=== PATIENT | male | born 1940 | race Caucasian/White ===

== ENCOUNTER 2017-04-06 11:15 | Outpatient (CLI) | payer MEDICARE, OTHER ==
[~2017-04-06] VITALS: Ht 177.8 cm; Wt 93.2 kg
--- NOTE | ~2017-04-06 | HEMODYNAMI ---
PATIENT:FLAVIA BERRIOS MEDICAL RECORD: [id number] : 44 LOCATION:[facility]ERS ADMISSION DATE: 04/06/17 Generatedon:04/06/201715:07 Patient name: FLAVIA BERRIOS Patient #: [id number] SSN: [id number] : 1940 Date of study: 04/06/2017 Page: Of Hemodynamic Procedure Report Patient Data Patient Demographics Procedure consent was obtained First Name: FLAVIA Gender: Male Last Name: YASH : 1940 Patient #: [id number] Age: 76 year(s) Race: Unknown SSN: [id number] Ethnicity: or Additional ID: [id number] Contact details Address: [address] State: [place] [facility] Zip code: [address] Admission Admission Data Admission Date: 04/06/2017 Admission Time: 11:15 Arrival Date: 04/06/2017 Arrival Time: 13:30 Admit Source: Other Insurance Payor: Medicare Height (in.): 70 BSA: 2.11 (m2) Height (cm.): 177.8 BMI: 29.41 (kg/m2) Weight (lbs.): 205 Weight (kg.): 92.99 Lab Results Lab Result Date: 04/06/2017 Lab Result Time: 0:00 Biochemistry Name Units Result Min Max BUN mg/dl 12 --(-*--)-- 7 18 Creatinine mg/dl 1 --(--*-)-- 0.6 1.3 CBC Name Units Result Min Max Hemoglobin g/dl 15.8 --(--*-)-- 13.5 17.5 Procedure Procedure Types Cath Procedure Diagnostic Procedure [facility] w/Coronaries Miscellaneous Procedures Moderate Sedation up to 30 minutes Procedure Description Procedure Date Procedure Date: 04/06/2017 Procedure Start Time: 14:43 Procedure End Time: 15:02 Procedure Staff Name Function Cade Childers MD Performing Physician Perla Leija RT Scrub Catherine Winter RN Nurse Chichi Marley RT Monitor Procedure Data Cath Procedure Fluoroscopy Diagnostic fluoroscopy Total fluoroscopy Time: 2 time: 2 min min Diagnostic fluoroscopy Total fluoroscopy dose: 178 dose: 178 mGy mGy Contrast Material Contrast Material Type Amount (ml) Isovue 300 48 Entry Location Entry Primary Successful Side Size Upsize Upsize Entry Closure Brush ccessful Closure Location (Fr) 1 (Fr) 2 (Fr) Remarks Device Remarks Radial Right 6 Fr Mechanical artery Short Compression Femoral Right 5 Fr Exoseal artery Estimated blood loss: 5 ml Diagnostic catheters Device Type Used For End Catheter Placement Diagnostic Terumo Multi-vessel Optitorque 5Fr [place] 4.5 Angiography catheter Procedure Complications No complications Procedure Medications Medication Administration Route Dosage 0.9% NaCl I.V. 100 ml/hr Oxygen NC 2 l/min Heparin Flush Bag added to field 2 bags (1000units/500ml NS) Lidocaine 2% added to field 20 Radial Cocktail added to field 1 syringe (Verapomil 2mg/Nitro 400mcg/Heparin 1500units) Fentanyl I.V. 50 mcg Versed I.V. 1 mg Versed I.V. 1 mg Fentanyl I.V. 50 mcg Versed I.V. 1 mg Fentanyl I.V. 25 mcg Hemodynamics Rest BSA: 2.11 (m2) HGB: 15.8 (g/dl) O2 Consumption: Estimated: 243.88 (ml/min) O2 Co nsumption indexed: Estimated:115.58 (ml/min/m) Heart Rate: 71 (bpm) Pressure Samples Time Site Value (mmHg) Purpose Heart Use Rate(bpm) 14:57 LV 150/28,27 Snapshot 82 Gradients Valve Time Site Site Mean SEP/DFP Peak To Heart Use 1 2 (mmHg) (sec/min) Peak Rate (mmHg) (bpm) Aortic 14:58 LV AO 76 Snapshots Pre Cath Intra NCS Post Cath Vital Signs Time Heart Resp SPO2 NIBP (mmHg) Rhythm Pain Sedation Rate (ipm) (%) Status Level (bpm) 14:17:20 73 15 99 Measuring NSR 0 (11) 10(A) , No pain 14:18:07 75 17 98 189/111(146) NSR 0 (11) 10(A) , No pain 14:22:47 67 16 100 185/97(142) NSR 0 (11) 10(A) , No pain 14:27:18 67 15 99 168/96(134) NSR 0 (11) 10(A) , No pain 14:31:40 64 14 97 154/81(121) NSR 0 (11) 10(A) , No pain 14:36:39 61 17 98 Measuring NSR 0 (11) 9(A) , No pain 14:37:06 63 14 98 168/98(123) NSR 0 (11) 9(A) , No pain 14:41:24 62 16 97 148/86(123) NSR 0 (11) 9(A) , No pain 14:45:48 63 13 98 164/97(137) NSR 0 (11) 9(A) , No pain 14:50:10 75 13 96 122/77(101) NSR 0 (11) 9(A) , No pain 14:54:26 76 13 94 137/80(105) NSR 0 (11) 9(A) , No pain 14:59:25 70 14 87 Measuring NSR 0 (11) 9(A) , No pain 14:59:48 72 14 95 153/84(124) NSR 0 (11) 10(A) , No pain Medications Time Medication Route Dose Verified Delivered Reason Notes Eff ectiveness by by 14:15:46 0.9% NaCl I.V. 100 Buffie Buffie used for ml/hr Winter RN Winter rocket engine mechanic 14:15:57 Oxygen NC 2 l/min Buffie Buffie used for Winter RN Winter rocket engine mechanic 14:16:12 Heparin Flush added 2 bags Buffie Buffie used for Bag to Winter RN Winter rocket engine mechanic (1000units/500ml field NS) 14:16:21 Lidocaine 2% added 20ml Buffie Buffie used for to vial Winter RN Winter rocket engine mechanic field 14:28:44 Radial Cocktail added 1 Buffie Buffie used for (Verapomil to syringe Winter RN Winter rocket engine mechanic 2mg/Nitro field 400mcg/Heparin 1500units) 14:30:28 Fentanyl I.V. 50 mcg Buffie Buffie for Winter RN Winter RN sedation 14:30:38 Versed I.V. 1 mg Buffie Buffie for Winter RN Winter RN sedation 14:37:43 Versed I.V. 1 mg Buffie Buffie for Maggy Winter RN sedation 14:37:48 Fentanyl I.V. 50 mcg Catherine Alexander for Maggy Winter RN sedation 14:46:44 Versed I.V. 1 mg Catherine Alexander for Maggy Winter RN sedation 14:46:49 Fentanyl I.V. 25 mcg Catherine Alexander for Maggy Winter RN sedation Procedure Log Time Note 14:00:41 Catherine Winter RN sent for patient. Start room use. 14:14:01 Diagnostic Cath Status : Elective 14:14:49 Time tracking: Regular hours 14:14:53 Plan of Care:Hemodynamics will remain stable., Cardiac rhythm will remain stable., Comfort level will be maintained., Respiratory function will remain adequate., Patient/ family verbilizes understanding of procedure., Procedure tolerated without complication., Recovers from procedure without complications.. 14:15:09 Patient received from Pre/Post Procedure Room to CCL 3 Alert and oriented. Tansferred to table in Supine position. 14:15:12 Warm blankets applied, and mack hugger turned on for patient comfort. 14:15:12 Correct patient and procedure confirmed by team. 14:15:14 Signed procedure consent form obtained from patient. 14:15:15 ECG and BP/O2 sat monitors applied to patient. 14:15:31 Vital chart was started 14:15:46 0.9% NaCl 100 ml/hr I.V. was administered by Catherine Winter RN; used for procedure; 14:15:57 Oxygen 2 l/min NC was administered by Catherine Winter RN; used for procedure; 14:16:12 Heparin Flush Bag (1000units/500ml NS) 2 bags added to field was administered by Catherine Winter RN; used for procedure; 14:16:21 Lidocaine 2% 20ml vial added to field was administered by Catherine Winter RN; used for procedure; 14:21:55 Baseline sample Acquired. 14:21:58 Rhythm: sinus rhythm 14:22:00 Full Disclosure recording started 14:24:29 H&P Date Dictated: 03/24/2017 Within 30 days and on chart., H&P Addendum completed by physician on day of procedure. (MUST COMPLETE FOR ALL OUTPATIENTS). 14:24:30 Pre-procedure instructions explained to patient. 14:24:31 Pre-op teaching completed and patient verbalized understanding. 14:24:32 Family in waiting room. 14:24:33 Patient NPO since Midnight. 14:24:41 Is the patient allergic to Iodine/contrast media? No. 14:24:42 Was the patient premedicated? No 14:24:44 Is patient on blood thinner?No 14:24:47 Patient diabetic? No. 14:24:50 Previous problem with sedation/anesthesia? No ? 14:24:52 Snore? Yes 14:24:53 Sleep apnea? No 14:24:54 Deviated septum? No 14:24:54 Opens mouth fully? Yes 14:24:55 Sticks out tongue? Yes 14:24:57 Airway obstruction? No ? 14:24:59 Dentures? No ? 14:25:02 Pre procedure: right dorsailis pedis pulse 1+ Palpable, but thready & weak; easily obliterated 14:25:05 Patient pain scale 0/10 ?. 14:25:12 IV patent on arrival in left forearm with 0.9% NaCl at [facility]. 14:28:44 Radial Cocktail (Verapomil 2mg/Nitro 400mcg/Heparin 1500units) 1 syringe added to field was administered by Catherine Winter RN; used for procedure; 14:30:06 Lab Result : Creatinine 1 mg/dl 14:30:06 Lab Result : BUN 12 mg/dl 14:30:06 Lab Result : Hemoglobin 15.8 g/dl 14:30:28 Fentanyl 50 mcg I.V. was administered by Catherine Winter RN; for sedation; 14:30:31 Lab results completed and on chart. 14:30:35 Right Radial & Right Groin area was prepped with chlora-prep and draped in sterile fashion 14:30:36 Alarms reviewed by R. N. 14:30:36 Sharps counted by scrub and verified by R.N. 14:30:38 Versed 1 mg I.V. was administered by Catherine Winter RN; for sedation; 14:30:38 Physician arrived 14:30:38 --------ALL STOP TIME OUT------ 14:30:39 Final Timeout: patient, procedure, and site verified with staff and physician. All members of the team are in agreement. 14:30:41 Right Radial & Right Groin site verified by team. 14:30:43 Physical assessment completed. ASA score P 2 - A patient with mild systemic disease as per Cade Childers MD. 14:30:46 Sedation plan: IV Moderate Sedation Versed, Fentanyl 14:30:51 Use device set Radial Dx 14:30:52 Acist Syringe opened to sterile field. 14:30:52 Medline Cath Pack opened to sterile field. 14:30:53 Bag Decanter opened to sterile field. 14:30:53 Terumo 6Fr Slender Glidesheath opened to sterile field. 14:30:54 St Scott 260cm J .035 wire opened to sterile field. 14:30:54 Acist Hand Control opened to sterile field. 14:30:55 Acist Manifold opened to sterile field. 14:30:55 Tegaderm 4 x 4 opened to sterile field. 14:30:56 MBrace Wrist Support opened to sterile field. 14:35:49 Zero performed for pressure channel P1 14:37:43 Versed 1 mg I.V. was administered by Catherine Winter RN; for sedation; 14:37:48 Fentanyl 50 mcg I.V. was administered by Catherine Winter RN; for sedation; 14:37:58 Zero performed for pressure channel P1 14:43:20 Procedure started. 14:43:28 Local anesthetic to right radial artery with Lidocaine 2% by Cade Childers MD.INITIAL ACCESS ONLY 14:43:51 A 6 Fr Short sheath was inserted into the Right Radial artery 14:46:44 Versed 1 mg I.V. was administered by Catherine Winter RN; for sedation; 14:46:49 Fentanyl 25 mcg I.V. was administered by Catherine Winter RN; for sedation; 14:49:08 A Diagnostic Terumo Optitorque 5Fr [place] 4.5 catheter was advanced over the wire and used for Multi-vessel Angiography. 14:51:55 Radial loop detected; catheter removed; preparing for femoral access 14:52:08 Diagnostic Infinity 5Fr Multipack catheter opened to sterile field. 14:52:08 Terumo 5Fr [place] Sheath opened to sterile field. 14:52:32 Local anesthetic to right femoral artery with Lidocaine 2% by Cade Childers MD.ADDITIONAL ACCESS 14:52:53 A 5 Fr sheath was inserted into the Right Femoral artery 14:53:13 5 Fr jl 4 guide catheter was inserted over the wire 14:53:56 LCA angiography performed. 14:53:59 Injector settings: Ml/sec: 3, Volume: 6, 14:54:03 Catheter removed. 14:54:31 5 Fr 3drc guide catheter was inserted over the wire 14:55:34 RCA angiography performed. 14:55:37 Injector settings: Ml/sec: 3, Volume: 6, 14:56:24 Catheter removed. 14:57:04 5 Fr pig guide catheter was inserted over the wire 14:57:57 LV hemodynamics recorded. 14:57:58 LV gram done using GUTIÉRREZ 14:58:00 Injector settings: Ml/sec: 5, Volume: 15, 14:58:29 EF : 55 % 14:58:31 Catheter removed. 14:58:38 Cordis 5Fr Exoseal opened to sterile field. 14:59:19 Sheath removed intact; hemostasis achieved with Exoseal to the Right Femoral artery. 14:59:54 Procedure ended.(Physican Out) 15:00:03 Terumo TR Band Large opened to sterile field. 15:00:10 Fluoroscopy time 02.00 minutes. 15:00:17 Fluoroscopy dose: 178 mGy 15:00:17 Flurop Dose total: 178 15:00:36 Contrast amount:Isovue 300 48ml. 15:00:49 Sharps counted by scrub and verified by R.N. 15:00:51 TR band inflated with 10cc of air. 15:01:10 Sheath removed intact; hemostasis achieved with Mechanical Compression to the Right Radial artery. 15:01:15 Insertion/operative site no bleeding no hematoma. 15:01:18 Post-op/insertion site Right Femoral artery dressed using a 4 x 4 and Tegaderm. 15:01:22 Post right radial artery:stable 15:01:23 Post Procedure Pulses reassessed and unchanged 15:01:26 Post procedure rhythm: unchanged. 15:01:28 Estimated blood loss: 5 ml 15:01:30 Post procedure instruction explained to patient.Patient verbalizes understanding. 15:01:30 Patient needs reinforcement of post procedure teaching. 15:01:47 Procedure type changed to Cath procedure, Diagnostic procedure, LHC, LHC w/Coronaries, Miscellaneous Procedures, Moderate Sedation up to 30 minutes 15:01:49 Procedure and supply charges have been captured, reviewed, submitted and are correct. 15:01:53 Procedure Complication : No complications 15:01:56 Vital chart was stopped 15:01:56 See physician's report for complete and final results. 15:01:59 Report given to Pre/Post Procedure Room. 15:02:02 Patient transfered to Pre/Post Procedure Room with Stretcher. 15:02:04 Procedure ended. 15:02:04 Full Disclosure recording stopped 15:02:08 End room use (Document Last) 15:03:18 Admit Source: Other 15:03:20 Arrival Date: 04/06/2017 1:30:00 PM 15:03:29 Insurance Payor : Medicare 15:03:42 Patient Weight : 92.99 kg 15:03:46 Patient Height : 177.8 cm Device Usage Item Name Manufacture Quantity Catalog Hospital Part Current Minimal Lot# / Number Charge Number Stock Stock Serial# Code Acist Acist 1 06451 [id number] 042517 [id number] 20 Syringe [employer] Inc Medline Cardinal 1 [id number] 919504 77754 822983 5 Cath Pack Health Bag Microtek 1 2002S 512458 53718 862770 5 [employer] Terumo 6Fr Terumo 1 [id number] 429526 377381 130679 [address] [facility] Scott 1 [id number] 755346 656504 995493 30 260cm J .035 wire Acist Hand Acist 1 08551 668239 906528 499583 5 Control Medical [employer] Inc Acist Acist 1 91792 003447 064930 478900 5 Manifold Medical Systems Inc Tegaderm 4 3M 1 1626W 708706 429509 302466 5 x 4 MBrace Advanced 1 140-0250-00 835885 64453 264235 5 Wrist Vascular Support Dynamics Diagnostic Terumo 1 40-1368 857469 237790 282063 5 Terumo Optitorque 5Fr [place] 4.5 catheter Diagnostic Cardinal 1 [id number] 943631 45486 890607 30 Infinity Health 5Fr Multipack catheter Terumo 5Fr Terumo 1 [id number] 527279 017257 444049 40 [place] Sheath Cordis 5Fr Cardinal 1 EX500 689532 344175 899558 10 Exoseal Health Terumo TR Terumo 1 [id number] 709803 966350 446021 40 Band Large Signature Audit Miller Stage Time Signature Unsigned Intra-Procedure 04/06/2017 Chichi Marley 3:07:33 PM RT(R) Signatures Monitor : Chichi Marley RT Signature : Date : Time : [facility] [address] [place] [address]
[2017-04-06] MEDS ORDERED: PRAVACHOL40 MG PO (12:19)
[2017-04-06] MEDS ORDERED: LISINOPRIL5 MG PO (12:19)
[2017-04-06 12:21] VITALS: BP 170/95; Ht 177.8 cm; Wt 93.2 kg
[2017-04-06 12:43] LABS: BASOPHILS 0.5 % (0-2); EOSINOPHILS 1.9 % (0-7); HEMATOCRIT 45.9 % (42.0-54.0); HEMOGLOBIN 15.8 g/dL (13.5-17.5); IMMATURE GRANULOCYTES 0.2 % (0-5); LYMPHOCYTES 28.5 % (15-50); MCH 31.2 pg (26.0-34.0); MCHC 34.4 g/dL (31.0-37.0); MCV 90.5 fL (80.0-100.0); NEUTROPHILS 57.9 % (40-80); PLATELET COUNT 221 10x3/uL (130-400); RBC 5.07 10x6/uL (4.20-6.10); RDW 12.3 % (11.5-14.5); WBC 6.3 10x3/uL (4.8-10.8)
[2017-04-06 13:05] LABS: CALC OSMOLALITY 266 mosm/kg (275-300); CALCIUM 9.3 mg/dL (8.5-10.1); CARBON DIOXIDE 26.4 mmol/L (21.0-32.0); CHLORIDE - SERUM 98 mmol/L (98-107); GLUCOSE 109 mg/dL (74-106); POTASSIUM - SERUM 4.2 mmol/L (3.5-5.1); SODIUM 133 mmol/L (136-145); UREA NITROGEN 12 mg/dL (7-18); eGFR NON AFRICAN AMERICAN 78 mL/min (90-120)
--- NOTE | 2017-04-06 15:30 | NUR ---
TR BAND TO RIGHT WRIST CDI, NO BLEEDING NOTED. RIGHT GROIN CDI, NO HEMATOMA OR BLEEDING NOTED, SOFT TO TOUCH. DENIES NEEDS AT THIS TIME.
--- NOTE | 2017-04-06 16:07 | NUR ---
NO CHANGES TO EITHER SITE, FAMILY AT SIDE, DENIES NEEDS
--- NOTE | 2017-04-07 10:20 | OP ---
PATIENT NAME: FLAVIA BERRIOS MEDICAL RECORD: [id number] :44 LOCATION:D.CAT ADMISSION DATE: SURGEON: JARED WOODSON MD DATE OF OPERATION: 04/06/2017 PROCEDURE: Left heart catheterization, selective coronary angiography, right femoral approach. CATHETERS: A 5-Mongolian sheath, 5/4 left and right Joel, 5/4 pig. The procedure was well tolerated and the patient returned to gannon, sheath removed. ExoSeal device was placed. FINDINGS: Left ventriculography in 30-degree GUTIÉRREZ view: Normal wall motion, normal systolic function. CORONARY ANATOMY: LEFT MAIN: Left main is free of disease. LAD: A small vessel, free of disease. CIRCUMFLEX: Free of disease. RIGHT CORONARY ARTERY: Huge dominant right, free of disease. IMPRESSION: Normal systolic function. Normal coronary anatomy. TRANSINT:[id number] Voice Confirmation ID: [id number] DOCUMENT ID: [id number] JARED WOODSON MD at 1020 CC: [id number] DICTATION DATE: 04/06/17 1508 DOCK BOSS: 04/06/17 2340 DEP CLI 04/06/17 [place] [id number] [place] [id number]
== END 2017-04-06 17:30 | disposition home or self-care (01) ==
LOC: D.CATH 11:15
PROVIDERS: Internal Medicine Interventional Cardiology
DX: R94.39 Abnormal result of other cardiovascular function study (principal); I20.9 Angina pectoris, unspecified